=== PATIENT | male | born 1975 | race Caucasian/White ===

== ENCOUNTER → 2019-07-07 11:00 | Outpatient (BNVA) | payer OTHER, SELFPAY | PROVIDERS: Visit Provider Nurse Practitioner Family | DX: Z03.818 Encounter for observation for suspected exposure to other biological agents ruled out (principal) | CPT/HCPCS: 87635 ==

== ENCOUNTER 2024-04-18 00:25 | Emergency (ER) | payer BC, SELFPAY ==
[2024-04-18 00:41] VITALS: BP 123/89; PULSE 127; RESP 20; O2SAT 97; BMI 34.4
--- NOTE | 2024-04-18 00:43 | CTR_ITS ---
PROCEDURE INFORMATION: Exam: CT Head Without Contrast Exam date and time: 04/18/2024 12:52 AM Age: 49 years old Clinical indication: Injury or trauma; Blunt trauma (contusions or hematomas); Patient states fall from ladder at approx 8 foot height. Small laceration to RT parietal. No loc. ; Additional info: Trauma, intoxication, scalp lac TECHNIQUE: Imaging protocol: Computed tomography of the head without contrast. Radiation optimization: All CT scans at this facility use at least one of these dose optimization techniques: automated exposure control; mA and/or kV adjustment per patient size (includes targeted exams where dose is matched to clinical indication); or iterative reconstruction. COMPARISON: No relevant prior studies available. RADIATION DOSE METRICS: Total DLP (mGy-cm): 1083.14 FINDINGS: Brain: Normal. No hemorrhage. Unremarkable white matter. No mass effect. Cerebral ventricles: No ventriculomegaly. Paranasal sinuses: Visualized sinuses are unremarkable. No fluid levels. Mastoid air cells: Remote right mastoidectomy. Bones: Unremarkable. No acute fracture. Soft tissues: Small acute right frontal scalp hematoma. CT/CT head wo con* [id number] IMPRESSION: 1. Small acute right frontal scalp hematoma. 2. No evidence of acute intracranial process.
--- NOTE | 2024-04-18 00:43 | CTR_ITS ---
PROCEDURE INFORMATION: Exam: CT Cervical Spine Without Contrast Exam date and time: 04/18/2024 12:55 AM Age: 49 years old Clinical indication: Injury or trauma; Blunt trauma; Prior surgery; Surgery date: 6+ months; Surgery type: Mandibular fixation; Patient states fall from ladder at approx 8 foot height. Small laceration to RT parietal. No loc. ; Additional info: Trauma, intoxicated, denies neck pain TECHNIQUE: Imaging protocol: Computed tomography of the cervical spine without contrast. Radiation optimization: All CT scans at this facility use at least one of these dose optimization techniques: automated exposure control; mA and/or kV adjustment per patient size (includes targeted exams where dose is matched to clinical indication); or iterative reconstruction. COMPARISON: CT head wo con* [id number] 04/18/2024 12:52 AM RADIATION DOSE METRICS: Total DLP (mGy-cm): 421.07 FINDINGS: Bones: Remote internal fixation of left mandibular angle fracture. There is reversal of the normal cervical lordosis, often seen with muscle strain or spasm versus positioning. Slight loss of intervertebral disc space height is seen at C3-C4. Marginal spurring is seen at multiple levels. No evidence of fracture. No evidence of significant canal or foraminal stenosis. Mastoid air cells: Remote right mastoidectomy. Lungs: Lung apices are normal. Soft tissues: Unremarkable. CT/CT cervical spin wo con* [id number] IMPRESSION: Mild multilevel cervical spondylosis without evidence of acute osseous abnormality.
--- NOTE | 2024-04-18 00:44 | ED_ITS ---
HPI - Head Injury General: Chief complaint: Head Injury Stated complaint: Fell and hit R side of head Time Seen by Provider: 04/18/24 00:27 History of Present Illness: 49-year-old male reports falling from he ight. He was coming down onto a ladder from about 6 to 8 feet high. He hit the top right of his head. Denies loss of consciousness. He does have a scalp laceration which is the primary reason why he came in. The patient does admit to drinking alcohol. He originally said he takes a blood thinner but says it is for his blood pressure. Patient is alert and oriented on arrival but has some slurred speech. He denies any neck pain, spine pain, chest discomfort, abdominal pain, extremity pain. He is ambulatory here. He is actively moving all of his extremities. Patient is not 100% sure when his last tetanus shot was so he would like to get her update this evening. Related Data Allergies Allergy/AdvReac Type Severity Reaction Status Date / Time No Known Allergies Allergy Unverified 09/09/23 10:36 Review of Systems General: Reports: 10 or more systems reviewed and unremarkable except in HPI and below PFSH ED PFSH: Social History Smoking and tobacco/nicotine status: current every day tobacco/nicotine user Physical Exam Narrative: EXAM NARRATIVE: Patient has an approximately 2-1/2 cm laceration on his right frontoparietal scalp. Bleeding is currently stopped. He has a small abrasion on the occipital region on the right. C-spine is nontender. He has normal active range of motion of his neck and came in without any immobilization in place. He has some injected conjunctiva and mild endpoint nystagmus. He has a slight slur to his speech but is conversing in full sentences and having no problems with understanding what I am asking of him and making appropriate replies. The remainder of the spine is nontender as well. The chest wall is nontender. Palpation and range of motion of the extremities is unremarkable. Abdomen exam is soft and nontender. No trauma to the face. Const: COMMON NORMALS: alert and well nourished EXAM LIMITATIONS: no altered mental status HENMT: COMMON NORMALS: external ears normal EXTERNAL EAR: Yes external ears normal MOUTH: no muffled voice Eye: COMMON NORMALS: no scleral icterus Neck/C-Spine: GENERAL: Yes normal visual inspection and Yes trachea midline Resp: COMMON NORMALS: normal respiratory effort, No use of accessory muscles and clear to auscultation bilaterally AUSCULTATION: clear to auscultation bilaterally Cardio: COMMON NORMALS: regular rhythm RHYTHM: regular rhythm GI: COMMON NORMALS: Soft to palpation and non-tender PALPATION: Yes Soft to palpation and No Guarding due to palpation present (GI) Extremity: COMMON NORMALS: normal to inspection Neuro: COMMON NORMALS: moves all extremities, no focal motor deficits and no sensory deficits noted SENSORIUM/ORIENTATION: Yes alert Psych: COMMON NORMALS: mental status grossly normal, Normal thought process present, cooperative and normal affect THOUGHT PROCESS: Normal thought process present Skin: COMMON NORMALS: turgor normal and no jaundice GENERAL SKIN EXAM: turgor normal Procedures Laceration Laceration 1: Site: scalp Side (If applicable): right Size (cm): 3 Description: stellate Depth: simple, single layer Local Anesthetic: lidocaine 1% and with epi Amount of anesthesia used (mL): 8 Pre-repair: wound explored, irrigated extensively and deep structures intact Skin layer closed with: other (6 mau) Course Vital Signs: Vital signs: Vital Signs Pulse Rate 127 H 04/18/24 00:41 Respiratory Rate 20 H 04/18/24 00:41 Blood Pressure 123/89 04/18/24 00:41 Pulse Oximetry 97 04/18/24 00:41 MDM - Head Injury Medcial Decision Making 1. Head injury without reported loss of consciousness. Because of his alcohol ingestion today, we are going to proceed with a CT scan of his head and cervical spine. He has a scalp laceration that will need cleaned and stapled. Tdap will be updated. 2. No other injuries on exam. Patient denies any other concerns. UPDATE 0200 Patient was reexamined. He is cheerful, joking, awake, conversational. 2 of his friends are here with him. Tetanus was updated. I cleaned and examined his wound. I irrigated it. I then stapled it closed with 6 mau. There was no debris in the wound. CT scan of the head and neck was negative for any acute illness. Patient does not complain of any new or worsening pain. He feels good and is ready to be discharged. Lab Data Radiology Impressions Cervical Spine CT 04/18/24 00:43 IMPRESSION: Mild multilevel cervical spondylosis without evidence of acute osseous abnormality. Head CT 04/18/24 00:43 IMPRESSION: 1. Small acute right frontal scalp hematoma. 2. No evidence of acute intracranial process. All radiology interpretation(s) finalized by discharge Discharge Plan Discharge Patient Disposition: Home Clinical Impression: Closed head injury, Laceration of scalp without complication Condition: Stable Prescriptions: Discontinued ciprofloxacin-dexamethasone [Ciprodex] 0.3-0.1 % drops,suspension 4 drp otic (ear) BID 7 Days Qty: 7.5 0RF amoxicillin 500 mg tablet 1,000 mg PO BID 10 Days Qty: 40 0RF loperamide [Imodium A-D] 2 mg capsule 2 mg PO Q4H PRN (Reason: loose stool) Qty: 20 0RF Rx Instructions: 4mg then 2mg after each loose stool until symptoms controlled; 16 mg per 24 hrs ondansetron 4 mg tablet,disintegrating 4 mg PO Q8H Qty: 14 0RF Discharge Orders: Discharge ED (Routine); Ordered 04/18/24 Ordered By: German Centeno Patient Instructions: Scalp Laceration, Head Injury (ED) Activity Restrictions/Additional Instructions: Please read all discharge instructions and abide by recommendations and return precautions. Make an appointment to follow-up with your primary care doctor as directed for follow-up. Return to ER if getting worse or other emergent symptoms. [place] need to be removed in 1 week. Print Language: Armenian Coding Level of Care Code ED Assistant Front End Manager for Cass Duncan
[2024-04-18] MEDS: tetanus-dipt-pertussis 0.5 mL SDV IM (01:03)
[2024-04-18] MEDS: lidocaine-epi 1% 20 mL INJ 10 ML INJECTION (02:04)
[2024-04-18 02:06] VITALS: BP 121/82; PULSE 102; O2SAT 94
== END 2024-04-18 02:06 | disposition home or self-care (01) ==
PROVIDERS: Emergency Provider Emergency Medicine
DX: S01.01XA Laceration without foreign body of scalp, initial encounter (principal); S09.8XXA Other specified injuries of head, initial encounter; Z72.0 Tobacco use; W11.XXXA Fall on and from ladder, initial encounter
CPT/HCPCS: 12002; 70450; 72125; 90471; 90715; 99284